=== PATIENT | female | born 1945 | race Asian ===

== ENCOUNTER 2023-04-19 10:13 | Outpatient (CLI) | payer OTHER ==
[~2023-04-19] VITALS: Ht 165.1 cm; Wt 92.1 kg
[2023-04-19 10:20] VITALS: BP 148/53; TEMP 97.8
== END 2023-04-19 21:53 | disposition home or self-care (01) ==
LOC: INF 10:13
PROVIDERS: ATTEND Internal Medicine
DX: D50.8 Other iron deficiency anemias (principal); N18.31 Chronic kidney disease, stage 3a
CPT/HCPCS: 96365; Q0138

== ENCOUNTER 2023-04-26 09:31 | Outpatient (CLI) | payer OTHER ==
[~2023-04-26] VITALS: Ht 165.1 cm; Wt 92.1 kg
[2023-04-26 09:40] VITALS: BP 145/49; TEMP 97.7
== END 2023-04-26 19:06 | disposition home or self-care (01) ==
LOC: INF 09:31
PROVIDERS: ATTEND Internal Medicine Endocrinology, Diabetes & Metabolism
DX: D50.8 Other iron deficiency anemias (principal); N18.31 Chronic kidney disease, stage 3a
CPT/HCPCS: 96365; Q0138